=== PATIENT | female | born 1960 | race Caucasian/White ===

== ENCOUNTER 2016-12-11 16:09 | Emergency (ER) | payer MEDICAID, OTHER ==
[~2016-12-11] VITALS: Ht 162.6 cm; Wt 78.0 kg
[2016-12-11 16:17] VITALS: Ht 162.6 cm; Wt 78.0 kg
[2016-12-11] MEDS ORDERED: SOD CHLORIDE 0.9% 1,000 ML IV STA (20:03)
[2016-12-11] MEDS ORDERED: ONDANSETRON 4 MG INJ IV STA (20:03)
[2016-12-11] MEDS ORDERED: morphine 4 MG/ML VIAL IV STA (20:03)
[2016-12-11 20:29] VITALS: TEMP 99.9
[2016-12-11] MEDS ORDERED: LOPERAMIDE 2 MG CAP PO ONE (20:30)
[2016-12-11 20:37] LABS: ADD SCAN DIFF NO
[2016-12-11 20:40] LABS: ADD UMIC YES; URINE BILIRUBIN (Dip) NEGATIVE (NEGATIVE); URINE BLOOD (Dip) NEGATIVE (NEGATIVE); URINE COLOR LT. YELLOW (YELLOW); URINE GLUCOSE (Dip) NEGATIVE (NEGATIVE); URINE KETONES (Dip) NEGATIVE (NEGATIVE); URINE LEUKOCYTE ESTERASE (Dip) TRACE (NEGATIVE); URINE NITRITE (Dip) NEGATIVE (NEGATIVE); URINE TOTAL PROTEIN (Dip) 1+ (NEGATIVE); URINE UROBILINOGEN (Dip) 0.2 E.U./dL (0.1-1.0)
[2016-12-11 20:41] LABS: BASOPHILS % 0.2 % (0.0-2.0); EOSINOPHILS # 0.1 10^3/ul (0.0-0.5); EOSINOPHILS % 0.8 % (0.0-7.0); HEMATOCRIT 44.5 % (37.0-47.0); LYMPHOCYTES # 0.9 10^3/ul (0.8-2.9); MEAN CORPUSCULAR HEMOGLOBIN 31.3 pg (29.0-33.0); MEAN CORPUSCULAR HGB CONC 33.7 g/dl (32.0-37.0); MEAN CORPUSCULAR VOLUME 92.9 fl (82.0-101.0); MEAN PLATELET VOLUME 12.3 fl (7.4-10.4); MONOCYTE # 0.6 10^3/ul (0.3-0.9); MONOCYTES % 5.5 % (0.0-11.0); NEUTROPHIL # 9.7 10^3/ul (1.6-7.5); NEUTROPHILS % 85.2 % (39.0-77.0); PLATELET COUNT 153 10^3/UL (140-415); RED BLOOD COUNT 4.79 10^6/ul (4.20-5.40); RED CELL DISTRIBUTION WIDTH 13.7 % (11.5-14.5); WHITE BLOOD COUNT 11.3 10^3/ul (4.8-10.8)
[2016-12-11 20:54] LABS: URINE RBCS 0-2 /HPF (0)
[2016-12-11 21:04] LABS: ALBUMIN 4.1 g/dl (3.3-4.9)
[2016-12-11 21:07] LABS: ALBUMIN/GLOBULIN RATIO 1.17; BILIRUBIN,INDIRECT 0.5 mg/dl (0-1.1); BILIRUBIN,TOTAL 0.5 mg/dl (0.2-1.3); CREATININE 0.79 mg/dl (0.44-1.00); TOTAL PROTEIN 7.6 g/dl (6.1-8.1)
[2016-12-11 21:08] LABS: CALCIUM 8.4 mg/dl (8.4-10.2)
[2016-12-11] MEDS ORDERED: ONDA4TAB14 PO (21:18)
[2016-12-11] MEDS ORDERED: LOPE2CAP PO (21:18)
--- NOTE | 2016-12-11 21:19 | ERD ---
ER Documentation Chief Complaint Date/Time DATE: 12/11/16 TIME: 21:19 Chief Complaint AP WITH VOMITING SINCE FRIDAY HPI Patient is a 56-year-old female with coronary disease, stroke, and hypertension who presents with vomiting and diarrhea. Her symptoms started last week. The symptoms are coming and going. She denies fevers. She has abdominal cramps. She tried Pepto-Bismol. She called her primary doctor who is in [place] and was told to go to the ER. She is going back to [place] tomorrow. Upon review of old medical records this is the patient's first visit to the emergency department. ROS All systems reviewed and are negative except as per history of present illness. Medications Home Meds Active Scripts Loperamide Hcl* (Imodium*) 2 Mg Capsule, 2 MG PO .AFTER EA LOOSE BM Y for DIARRHEA, #10 TAB Prov:RANDY VILLELA MD 12/11/16 Ondansetron (Ondansetron Odt) 4 Mg Tab.rapdis, 4 MG PO Q6H Y for NAUSEA AND/OR VOMITING, #10 TAB Prov:RANDY VILLELA MD 12/11/16 Allergies Allergies: Coded Allergies: No Known Allergy (Unverified , 12/11/16) PMhx/Soc Positive for coronary disease, stroke, and hypertension Hx Alcohol Use: No Hx Substance Use: No Hx Tobacco Use: No Smoking Status: Never smoker FmHx Family History: diabetes Physical Exam Vitals Vital Signs Date Time Temp Pulse Resp B/P Pulse Ox O2 Delivery O2 Flow Rate FiO2 12/11/16 21:37 80 15 130/68 99 Room Air 12/11/16 20:29 99.9 78 18 125/73 97 Room Air 12/11/16 16:17 98.1 73 20 155/73 99 Physical Exam Const: No acute distress Head: Atraumatic Eyes: Normal Conjunctiva ENT: Normal External Ears, Nose and Mouth. Neck: Full range of motion..~ No meningismus. Resp: Clear to auscultation bilaterally Cardio: Regular rate and rhythm, no murmurs Abd: Soft, non tender, non distended. Normal bowel sounds Skin: No petechiae or rashes Back: No midline or flank tenderness Ext: No cyanosis, or edema Neur: Awake and alert Psych: Normal Mood and Affect Result Diagram: 5/10/201312/11/162013 Results 24 hrs Laboratory Tests Test 12/11/16 20:10 12/11/16 20:14 Urine Color LT. YELLOW Urine Clarity CLEAR Urine pH 8.5 Urine Specific [place] 1.010 Urine Ketones NEGATIVE Urine Nitrite NEGATIVE Urine Bilirubin NEGATIVE Urine Urobilinogen 0.2 E.U./dL Urine Leukocyte Esterase TRACE Urine Microscopic RBC 0-2/HPF Urine Microscopic WBC 0-2/HPF Urine Hemoglobin NEGATIVE Urine Glucose NEGATIVE% Urine Total Protein 1+ White Blood Count 11.310^3/ul Red Blood Count 4.7910^6/ul Hemoglobin 15.0g/dl Hematocrit 44.5% Mean Corpuscular Volume 92.9fl Mean Corpuscular Hemoglobin 31.3pg Mean Corpuscular Hemoglobin Concent 33.7g/dl Red Cell Distribution Width 13.7% Platelet Count 36223^3/UL Mean Platelet Volume 12.3fl Neutrophils % 85.2% Lymphocytes % 8.0% Monocytes % 5.5% Eosinophils % 0.8% Basophils % 0.2% Nucleated Red Blood Cells % 0.0/100WBC Neutrophils # 9.710^3/ul Lymphocytes # 0.910^3/ul Monocytes # 0.610^3/ul Eosinophils # 0.110^3/ul Basophils # 0.010^3/ul Nucleated Red Blood Cells # 0.010^3/ul Sodium Level 139mmol/L Potassium Level 4.0mmol/L Chloride Level 101mmol/L Carbon Dioxide Level 27mmol/L Anion Gap 15 Blood Urea Nitrogen 21mg/dl Creatinine 0.79mg/dl Glucose Level 114mg/dl Calcium Level 8.4mg/dl Total Bilirubin 0.5mg/dl Direct Bilirubin 0.00mg/dl Indirect Bilirubin 0.5mg/dl Aspartate Amino Transf (AST/SGOT) 38IU/L Alanine Aminotransferase (ALT/SGPT) 45IU/L Alkaline Phosphatase 138IU/L Total Protein 7.6g/dl Albumin 4.1g/dl Globulin 3.50g/dl Albumin/Globulin Ratio 1.17 Lipase 127U/L Current Medications Medications (Trade) Dose Ordered Sig/Johnnie Route PRN Reason Start Time Stop Time Status Last Admin Dose Admin Sodium Chloride (NS) 1,000 ml @ 1,000 mls/hr Q1H STAT IV 12/11/16 20:03 12/11/16 21:02 DC 12/11/16 20:18 Morphine Sulfate (morphine) 4 mg ONCE STAT IV 12/11/16 20:03 12/11/16 20:04 DC 12/11/16 20:24 Ondansetron HCl (Zofran Inj) 4 mg ONCE STAT IV 12/11/16 20:03 12/11/16 20:04 DC 12/11/16 20:18 Loperamide HCl (Imodium Cap) 2 mg ONCE ONCE PO 12/11/16 20:30 12/11/16 20:31 DC 12/11/16 20:18 Procedures/MDM EKG read by me: Rate/Rhythm: Regular rate and rhythm at a rate of 99 Intervals: Normal Impression: No evidence of ischemia or arrhythmia Patient is a 56-year-old female presents with vomiting and diarrhea. Her laboratory studies are normal. EKG shows no signs of ischemia. This point I believe patient likely has a viral illness. I doubt appendicitis, cholecystitis , pancreatitis, or bowel obstruction. The patient feels better after fluids, Zofran, and Imodium. The patient be given a prescription for Imodium and Zofran and can follow-up with her primary doctor within 1-2 days for reevaluation. She can return sooner for any worsening symptoms. Departure Diagnosis: Primary Impression: Vomiting and diarrhea Additional Impression: Abdominal pain Abdominal location: unspecified location Qualified Code: R10.9 - Abdominal pain, unspecified location Condition: Fair Patient Instructions: Self-Care for Vomiting and Diarrhea Referrals: Your doctor Additional Instructions: Call your primary care doctor TOMORROW for an appointment during the next 1-2 days.See the doctor sooner or return here if your condition worsens before your appointment time. RANDY VILLELA MD December 11, 2016 21:19
[2016-12-11 21:37] VITALS: BP 130/68; PULSE 80; RESP 15
== END 2016-12-11 21:37 | disposition home or self-care (01) ==
LOC: E/R 16:09
DX: R11.10 Vomiting, unspecified (principal); R19.7 Diarrhea, unspecified; I25.10 Atherosclerotic heart disease of native coronary artery without angina pectoris; I10 Essential (primary) hypertension
CPT/HCPCS: 36415; 80053; 81001; 83690; 85025; 93005; 96374; 96375; J2270; J2405; J7030; Z7502; Z7610; 81003